=== PATIENT | male | born 1980 | race Caucasian/White ===

== ENCOUNTER 2020-10-03 04:28 | Outpatient (CLI) | payer OTHER, SELFPAY | END 2020-10-03 04:29 | disposition home or self-care (01) | LOC: RT 04:28 | PROVIDERS: PCP Student in an Organized Health Care Education/Training Program; Visit Provider Student in an Organized Health Care Education/Training Program | DX: R53.83 Other fatigue (principal); G47.30 Sleep apnea, unspecified | CPT/HCPCS: 94762 ==

== ENCOUNTER 2021-01-29 02:00 | Outpatient (CLI) | payer OTHER, SELFPAY ==
--- NOTE | 2021-01-29 08:12 | DI.RAD_ITS ---
Exam(s) XR SHOULDER RT COMPLETE 2+V EXAM: XR SHOULDER RT COMPLETE 2+V CLINICAL HISTORY: r/o bony path; eval spacing,POSSIBLE IMPINGEMENT,RT SHOULDER PAIN, M25.511. TECHNIQUE: 2D digital imaging was performed. COMPARISON: No exams were available for comparison FINDINGS: Four views the right shoulder reveal no evidence of fracture or dislocation or abnormal soft tissue c alcifications. Subacromial space is not diminished. No obvious degenerative changes in the glenohum eral and AC joints. No os acromiale. The coracoid process is intact. Bone density is normal. IMPRESSION: No significant radiographic findings on these four views of the right shoulder. DATA REPOSITORY: RADIATION DOSE DELIVERED:
== END 2021-01-29 02:20 ==
PROVIDERS: PCP Student in an Organized Health Care Education/Training Program; Visit Provider Student in an Organized Health Care Education/Training Program
DX: M25.511 Pain in right shoulder (principal)
CPT/HCPCS: 73030

== ENCOUNTER 2021-04-20 16:24 | Outpatient (REF) | payer OTHER, SELFPAY ==
[2021-04-20 20:07] LABS: HCT 47.1 % (40.0-50.0); HGB 15.7 g/dL (13.5-17.5); MCH 28.5 pg (27.0-33.0); MCHC 33.3 % (32.0-36.0); MCV 85.5 fL (80-95); MPV 9.6 fL (8.0-11.0); Platelet Count 330 10^3/uL (130-400); RBC 5.51 10^6/uL (4.36-5.78); RDW 12.3 % (11.8-14.1); RDW-SD 38.5 fL; WBC 10.08 10^3/uL (4.4-10.8)
[2021-04-20 20:31] LABS: ALT 92 U/L (16-63); AST 29 U/L (15-37); Albumin 4.4 g/dL (3.4-5.0); Alkaline Phosphatase 85 U/L (46-116); Anion Gap 12.3 mmol/L (3-11); BUN 7 mg/dL (7-18); Bilirubin, Total 0.3 mg/dL (0.2-1.0); CO2 24.7 mmol/L (21.0-32.0); CREATININE 1.1 mg/dL (0.70-1.30); Calcium 9.3 mg/dL (8.5-10.1); Calculated LDL 125 mg/dL (<100); Chloride 102 mmol/L (98-107); Cholesterol 227 mg/dL (<200); Glucose 79 mg/dL (74-106); HDL Cholesterol 41 mg/dL (40-60); Potassium 4.2 mmol/L (3.5-5.1); Sodium 139 mmol/L (136-145); TSH (W/Ref FT4) 0.96 uIU/mL (0.36-3.74); Total Protein 8.1 g/dL (6.4-8.2); Triglyceride 307 mg/dL (<150)
== END 2021-04-20 16:25 | disposition home or self-care (01) ==
LOC: LBN 16:24
PROVIDERS: PCP Student in an Organized Health Care Education/Training Program; Visit Provider Student in an Organized Health Care Education/Training Program
DX: R53.83 Other fatigue (principal); I10 Essential (primary) hypertension; Z13.1 Encounter for screening for diabetes mellitus; Z13.220 Encounter for screening for lipoid disorders
CPT/HCPCS: 80053; 80061; 85027; 84443

== ENCOUNTER 2021-11-09 01:12 | Outpatient (CLI) | payer OTHER, SELFPAY ==
[2021-11-09 17:04] LABS: ALT 70 U/L (16-63); AST 28 U/L (15-37); Alkaline Phosphatase 73 U/L (46-116); Bilirubin, Direct 0.2 mg/dL (0.0-0.2); Bilirubin, Total 0.8 mg/dL (0.2-1.0); Total Protein 7.8 g/dL (6.4-8.2)
[2021-11-09 17:24] LABS: Calculated LDL 123 mg/dL (<100); Cholesterol 209 mg/dL (<200); HDL Cholesterol 49 mg/dL (40-60); Triglyceride 189 mg/dL (<150)
== END 2021-11-09 01:13 | disposition home or self-care (01) ==
LOC: LBO 01:12
PROVIDERS: PCP Student in an Organized Health Care Education/Training Program; Visit Provider Student in an Organized Health Care Education/Training Program
DX: Z13.220 Encounter for screening for lipoid disorders (principal); R74.01 Elevation of levels of liver transaminase levels
CPT/HCPCS: 36415; 80061; 80076

== ENCOUNTER 2021-11-28 02:26 | Outpatient (CLI) | payer OTHER, SELFPAY ==
[2021-11-28 11:47] LABS: Source Nasal/Nares
[2021-11-28 14:20] LABS: COVID-19 PCR Negative (Negative)
== END 2021-11-28 02:27 | disposition home or self-care (01) ==
PROVIDERS: PCP Student in an Organized Health Care Education/Training Program; Visit Provider Surgery
DX: Z01.818 Encounter for other preprocedural examination (principal); Z20.822 Contact with and (suspected) exposure to COVID-19
CPT/HCPCS: 87635

== ENCOUNTER 2021-11-30 08:25 | Day surgery (SDC) | payer OTHER, SELFPAY ==
[2021-11-30] VITALS (10 sets, daily range): BP systolic 83–138; BP diastolic 53–96; PULSE 57–99; RESP 14–21; TEMP 36–37.1; O2SAT 94–100; BMI 28.2
--- NOTE | 2021-11-30 05:57 | W.PM.DSUDISC ---
Discharge Plan Disposition Patient Disposition: HOME Condition: Good Discharge Details Reason For Visit: excision of pilonidal cyst Attending Provider: Hemant Castillo Primary Care Provider: Brenda Swift Home Meds and New Rx's Prescriptions: New oxycodone 5 mg tablet 5 mg PO Q8H PRN (Reason: pain) Qty: 9 0RF Rx Instructions: Use for severe pain if Tylenol and ibuprofen are not working. This is highly addictive and should only be used with great caution No Action nicotine (polacrilex) 4 mg gum 4 mg buccal Q2H Qty: 100 1RF lisinopril 10 mg tablet 10 mg PO DAILY Qty: 90 3RF Rx Instructions: Continue for elevated diastolic BP Discharge Instructions Instructions: Pilonidal Cyst Excision (DC) Additional Instructions: 1. Resume all of your medications. 2. Okay to use tylenol and ibuprofen over the counter as needed. 3. Use oxycodone as needed for pain. 4. Leave bandage in place for 24 hours, then remove. 5. Shower with warm soapy water. Pat dry. Use a bandaid if needed to protect your clothing. 6. No soaking or tub baths until I see you in the office. 7. No heavy lifting until I see you in the office. No running. Be very careful when sitting, bending or going to the bathroom. 8.Call the office (or go directly to the emergency room after hours) if you notice any of the following: Develop chills (warm to touch), or if you have a thermometer and your temperature is above 101 Difficulty breathing or difficultly swallowing Persistent vomiting Any bleeding ? exceeding one tablespoon 6. Call your physician if the site where your intravenous was started becomes red, swollen, painful, and warm to touch. Referrals: Hemant Castillo MD [ [facility] STAFF PHYSICIAN] - Activity:: Activity as Tolerated Remove Dressings/Wound Care:: 24 hours Shower/Bathe:: 24 hours Diet:: As Tolerated Discharge Orders Discharge Orders: Discharge Order (Routine); Ordered 11/30/21 Ordered By: Hemant Castillo Discharge Data Discharge Comment: follow up with me 7-10 days for suture removal
--- NOTE | 2021-11-30 06:00 | W.PM.OP ---
Date of service: 11/30/21 Time of Service: 11:39 Operative Note Operative Note DATE OF PROCEDURE: 11/30/21 PRE-OP DIAGNOSIS: Pilonidal Cyst POST-OP DIAGNOSIS: same PROCEDURE: Pilonidal cystectomy with primary closure SURGEON: Hemant Castillo ASSISTING SURGEON: Colleen Dozier ANESTHESIA TYPE: General LMA/ETT Refer to Anesthesia Record ESTIMATED BLOOD LOSS: 30 PATHOLOGY: other (pilonidal cyst) COMPLICATIONS: None Patient was transported to: PACU Patient's condition: stable Implants: None Indications: Reba is a 41-year-old male with a pilonidal cyst. Generally, he has been able to manage it pretty well on his own. More recently, he become interested in definitive surgery to help minimize the chances of future infections and complications. Procedure Description: After the induction of general anesthesia, we rolled him from the supine to the prone position. We padded points of contact and made sure there was no stress on his joints. Genitalia were arranged. Next, I used hair clippers to trim the area of surgery. I then prepped and draped in the usual fashion. Next, using a lacrimal probe, I gently explored the tract of the cyst. It extended cephalad, and slightly towards the patient's left-hand side ultimately connecting with the fistula around the 10 o'clock position. With the lacrimal duct in place, I then began excising the area of the pilonidal tract. I dissected down through the skin to the subcutaneous fat. It took great care to encircle the trajectory of the cyst and excise it completely. The fistula site at the 10 o'clock position was excised circumferentially, as well as the origin of the pilonidal base. I extended the incision towards the patient's left side, essentially creating a reversed question-marked incision. I elevated and mobilized full-thickness skin flaps. Next, I irrigated the surgical field. It was hemostatic. The final length of the incision was approximately 6 cm long by 2 cm deep. I closed the deeper layers with interrupted Vicryl stitches, and I used interrupted nylons to approximate the skin edge.
[2021-11-30] MEDS: Acetaminophen 500 MG TAB 1000 MG PO (08:56)
[2021-11-30] MEDS: Gabapentin 300 MG CAP PO (08:56)
[2021-11-30] MEDS: Celecoxib 200 MG CAP PO (08:57)
[2021-11-30] MEDS: Lactated Ringers 1,000 ML 80 ML IV (09:20)
--- NOTE | 2021-11-30 09:57 | ANES.PREOP_ITS ---
General Info Date of Service Date Performed: 11/30/21 Height: 5 ft 10 in Weight: 89.2 kg Body Mass Index (BMI): 28.2 Surgical Procedure: Operation Date: 11/30/21 10:10 Proposed Procedure Side Surgeon p Pilonidal Cyst Excision and Closure Hemant Castillo MD Meds Allergies and Home Medications Allergies Allergy/AdvReac Type Severity Reaction Status Date / Time No Known Allergies Allergy Verified 11/30/21 09:00 Home Medication Medication Instructions Recorded nicotine (polacrilex) 4 mg gum 4 mg buccal Q2H #100 ea 04/20/21 lisinopril 10 mg tablet 10 mg PO DAILY #90 tabs 11/10/21 Current Visit Medications: Current Medications Generic Name Dose Route Start Last Admin Trade Name Freq PRN Reason Stop Dose Admin Acetaminophen 1,000 mg 11/30/21 06:00 11/30/21 08:56 Acetaminophen 500 Mg Tab PO 11/30/21 23:59 1,000 mg PREOP DERRICK Administration Celecoxib 200 mg 11/30/21 06:00 11/30/21 08:57 Celecoxib 200 Mg Cap PO 11/30/21 23:59 200 mg PREOP DERRICK Administration Gabapentin 300 mg 11/30/21 06:00 11/30/21 08:56 Gabapentin 300 Mg Cap PO 11/30/21 23:59 300 mg PREOP DERRICK Administration Ringer's Solution 1,000 mls @ 80 mls/hr 11/30/21 06:00 11/30/21 09:20 IV 11/30/21 23:59 80 mls/hr INFUSION DERRICK Administration Cefazolin Sodium/Dextrose 2 gm in 50 mls @ 100 mls/hr 11/30/21 06:00 Ancef Duplex IVPB 11/30/21 23:59 PREOP DERRICK IV Miscellaneous Supplies 1 each 11/30/21 06:00 Iv Access IV 11/30/21 23:59 DIRECTED DERRICK Sodium Chloride 0 ml 11/30/21 06:00 Normal Saline Flush 10 Ml Syr IV 11/30/21 23:59 PRN PRN Sodium Chloride 0 ml 11/30/21 06:00 Normal Saline 10 Ml Vial IJ 11/30/21 23:59 DIRECTED PRN Sterile Water 0 ml 11/30/21 06:00 Water,Injection,Sterile 10 Ml Vial IJ 11/30/21 23:59 DIRECTED PRN PFSH Active Problems Active Problems: Problem Status Onset Code Cyst near coccyx L05.91 Superior labrum mrrhafuj-mq-xjuyekdos (SLAP) tear of right shoulder S43.431A Tendonitis of upper biceps tendon of right shoulder M75.21 Elevated BP without diagnosis of hypertension R03.0 RASHAAD (obstructive sleep apnea) ~02/2021 G47.33 Insomnia, unspecified G47.00 Shoulder pain, right M25.511 Right elbow pain M25.521 Family history of colon cancer Z80.0 Family hx of hypertension Z82.49 Right knee pain M25.561 Chewing tobacco nicotine dependence F17.220 Hx of sleep apnea Z86.69 History of snoring Z87.898 Medical History Medical History Comments:: pt reports chews tobacco but has not today 11/30/21 Tobacco Smoking/Tobacco Use Status: Current-Occasional Tobacco Type: cigarettes Smokeless tobacco user: chewing tobacco Passive smoking exposure: No Alcohol Alcohol Intake: current Alcohol intake frequency: a few times a week Alcohol type: beer Substance Use Substance use: Never Substance use type: does not use Vital Signs and Lab Results Vital Signs Most Recent Vital Signs in EMR: Most Recent Vital Signs Temp Pulse Resp BP Pulse Ox 37.1 C 99 H 14 138/96 H 98 11/30/21 08:44 11/30/21 08:44 11/30/21 08:44 11/30/21 08:44 11/30/21 08:44 Lab Results Blood Type / Crossmatch: No Data to Display Complete Blood Count: No Data to Display Complete Metabolic Panel: Albumin 4.0 g/dL (3.4-5.0) 11/09/21 16:30 Liver Function Panel: Alanine Aminotransferase (ALT/SGPT) 70 U/L (16-63) H 11/09/21 1 6:30 Aspartate Amino Transf (AST/SGOT) 28 U/L (15-37) 11/09/21 16:30 Coagulation Panel: No Data to Display Cardiac Panel: No Data to Display Arterial Blood Gas: No Data to Display Venous Blood Gas: No Data to Display Pancreas Panel: No Data to Display Thyroid Panel: No Data to Display Infectious Disease: Coronavirus (COVID-19)(PCR) Negative (Negative) 11/28/21 07:30 Coronavirus 2019 Source Nasal/Nares 11/28/21 07:30 Blood Cultures: No Data to Display Toxicology Panel: No Data to Display Anesthesia Assessment and Plan Anesthesia History Personal History: No History of Anesthesia Complications Family History: No Family History of Anesthesia Complications Exercise Tolerance Exercise Tolerance: Metabolic Equivalents>4 Pertinent Negatives Pertinent Negatives: No Symptoms of GERD Cardiac & Pulmonary Exam Cardiac Exam: Normal S1/S2 Heart Sounds Pulmonary Exam: Clear Bilateral Breath Sounds Implantable Cardiac Device Does patient have a Pacemaker or an ICD?: No Airway Exam Known Difficult Airway: No Mallampati Class: 2 Mouth Opening: Normal (> 3cm) Thyromental Distance: Greater than 3 cm Neck Range of Motion: Full ROM Neck Circumference: Normal Teeth Condition: Normal Dentition and Generalized Poor Dentition ASA Classification ASA Score: ASA 2 Emergency Case?: No NPO Status NPO Status: NPO Clears >2 hours, Solids >8 hours Anesthesia Plan Resuscitation Status: Full Code Anesthesia Technique: General Anesthesia Airway Planned: Endotracheal Tube Monitors Used: Standard Monitors
[2021-11-30] MEDS: ceFAZolin 2 GM/50 ML BAG IVPB (10:57)
[2021-11-30] MEDS: Lidocaine 1% Multi-Dose W/EPI 1/100,000 50 ML VIAL (11:21)
--- NOTE | 2021-11-30 11:22 | PILONIDAL_PTH ---
PATIENT: Lavelle Starks LOC: [facility] U#:[id number] AGE/SX: 41/M ROOM: RE11/30/[address]: Hemant Castillo MD : 1980 BED: DIS: 11/30/2021 SPEC #: [id number] RECD: 11/30/21 12:51 STATUS: ALBERTO REQ #: [id number] LISSY: 11/30/21 11:[address]: Hemant Castillo DEPT: Surgical Specimen RECD BY: Evangelina Case ENTERED: 11/30/21 12:52 SP TYPE: PILONIDAL OTHR DR: Brenda Swift DO Tissues: 1 - PILONIDAL CYST/SINUS Procedures: GROSS AND MICRO LEVEL 3 Comments: [id number]
--- NOTE | 2021-11-30 13:35 | W.ANESPOSTOP ---
Postoperative Evaluation Date, Time and Location Date Performed: 11/30/21 Time Performed: 13:35 Patient Location: Day Surgery Unit Vital Signs Most Recent Imported Vital Signs: Most Recent Vital Signs Temp Pulse Resp BP Pulse Ox 36 C L 66 16 99/78 L 100 11/30/21 13:23 11/30/21 13:23 11/30/21 13:23 11/30/21 13:23 11/30/21 13:23 Pain Score Most Recent Pain Score: Most Recent Pain Score Pain Level 4 11/30/21 13:23 Assessment Mental Status: Awake (Alert & Oriented to Patient Baseline) Airway and Respiratory Function: Patent airway with normal (patient baseline) respiratory exam Cardiovascular Function: Hemodynamically Stable Hydration Status: Adequately Hydrated Nausea & Vomiting: No Nausea or Vomiting Pain: Pain is tolerable per patient Peripheral Nerve Block: Patient did not receive a nerve block
== END 2021-11-30 14:08 | disposition home or self-care (01) ==
PROVIDERS: PCP Student in an Organized Health Care Education/Training Program; Visit Provider Surgery
PROC: (CPT 11770; principal; 2021-11-30 10:00)
DX: L05.91 Pilonidal cyst without abscess (principal); G47.33 Obstructive sleep apnea (adult) (pediatric)
CPT/HCPCS: 11770; 88304; J0690; J1100; J2250; J2405; J2704

== ENCOUNTER 2024-02-25 15:14 | Outpatient (CLI) | payer OTHER, SELFPAY ==
--- NOTE | 2024-02-25 09:15 | DI.RAD_ITS ---
Exam(s) XR KNEE RT 3V AP,LAT,SUSHMA EXAM: XR KNEE RT 3V AP,LAT,SUSHMA CLINICAL HISTORY: RIGHT KNEE PAIN. TECHNIQUE: 2D digital imaging was performed of the right knee. Three views obtained. Merchant, AP an d lateral views were obtained. COMPARISON: No exams were available for comparison FINDINGS: BONES: No acute fracture is present. No bony destructive lesion is seen. There is an enthesophyte at the anterior patella. JOINTS: The knee is normally aligned. There is a small joint effusion. SOFT TISSUE: Normal. IMPRESSION: No acute abnormality. DATA REPOSITORY: RADIATION DOSE DELIVERED:
== END 2024-02-25 15:15 | disposition home or self-care (01) ==
LOC: DIORS 15:14
PROVIDERS: PCP Student in an Organized Health Care Education/Training Program; Visit Provider Student in an Organized Health Care Education/Training Program
DX: M25.561 Pain in right knee (principal)
CPT/HCPCS: 73562

== ENCOUNTER 2024-03-23 03:12 | Outpatient (CLI) | payer OTHER, SELFPAY ==
--- NOTE | 2024-03-23 07:00 | DI.MRI_ITS ---
Exam(s) MR LOWER JOINT RT WO EXAM: MR LOWER JOINT RT WO CLINICAL HISTORY: PAIN,internal derangement rt knee, m23.91. TECHNIQUE: Multiplanar multisequence MRI was performed. COMPARISON: CR XR KNEE RT 3V AP,LAT,SUSHMA from 02/25/2024 FINDINGS: BONES: There is no fracture or contusion pattern. Enthesophyte at upper pole patella and tibial tub ercle. JOINTS: A small joint effusion is present. Articular cartilage: Patellofemoral joint: Articular cartilage is unremarkable. Medial femoral tibial joint: Articular cartilage is unremarkable. Lateral femoral tibial joint: Articular cartilage is unremarkable. LIGAMENTS/TENDONS: Anterior Cruciate: Unremarkable. Posterior Cruciate: Unremarkable. Medial Collateral:Unremarkable. Lateral Collateral ligament complex: Unremarkable. Extensor mechanism: Unremarkable. Medial retinaculum: Unremarkable. Lateral retinaculum: Unremarkable. Popliteus: Unremarkable. MENISCI: The medial meniscus is unremarkable. The lateral meniscus is unremarkable. MUSCLES: Unremarkable. SOFT TISSUES: Unremarkable. IMPRESSION: Small joint effusion. No evidence of meniscal tear or ligament tear. DATA REPOSITORY:
== END 2024-03-23 03:32 ==
LOC: DI 03:13
PROVIDERS: PCP Student in an Organized Health Care Education/Training Program; Visit Provider Student in an Organized Health Care Education/Training Program
DX: M23.91 Unspecified internal derangement of right knee (principal)
CPT/HCPCS: 73721